=== PATIENT | female | born 1980 | race Caucasian/White ===

== ENCOUNTER 2024-02-26 13:29 | Outpatient (CLI) | payer OTHER, SELFPAY ==
[2024-02-26 14:44] LABS: Basophils Absolute Auto 0.05 K/uL (0.00-0.30); Basophils Percent Auto 0.6 % (0.0-3.0); Eosinophils Absolute Auto 0.15 K/uL (0.00-0.50); Eosinophils Percent Auto 1.8 % (0.0-7.0); Hematocrit 40.1 % (33.0-51.0); Hemoglobin* 13.4 gm/dL (12.0-16.0); Immature Granulocytes Abs Auto 0.04 K/uL (0.00-0.30); Immature Granulocytes Pct Auto 0.5 %; Lymphocytes Absolute Auto 2.32 K/uL (0.90-2.90); Lymphocytes Percent Auto 27.4 % (20-44); Mean Corpuscular HGB Conc 33 gm/dL (32-36); Mean Corpuscular Hemoglobin 29 pg (26-34); Mean Corpuscular Volume 88 fL (80-100); Monocytes Percent Auto 6.6 % (0.0-11.0); Neutrophils Absolute Auto 5.35 K/uL (1.7-7.0); Neutrophils Percent Auto 63.1 % (42.0-72.0); Platelet Count* 359 K/uL (140-440); RDW Coefficient of Variation % 13.1 % (11.5-15.5); Red Blood Count 4.58 m/uL (4.00-5.20); White Blood Count* 8.47 K/uL (4.50-11.00)
[2024-02-26 14:49] LABS: Slide Review Reflex No
[2024-02-26 15:38] LABS: Albumin* 4.4 g/dL (3.3-5.0)
[2024-02-26 15:39] LABS: Chloride* 101 mmol/L (96-114); Potassium* 4.2 mmol/L (3.6-5.1); Sodium* 136 mmol/L (135-149)
[2024-02-26 15:41] LABS: Anion Gap 8 mEq/L (7-15); Aspartate Amino Transferase* 38 U/L (12-35); Bilirubin Total* 0.7 mg/dL (0.1-1.5); Blood Urea Nitrogen* 10 mg/dL (5-24); Carbon Dioxide* 27 mmol/L (20-32); Cholesterol* 199 mg/dL (90-199); Creatinine* 0.6 mg/dL (0.5-1.5); Estimated Glomerular Filt Rate 114 ml/min; Glucose* 83 mg/dL (60-115); Total Protein* 7.3 g/dL (6.0-8.3)
[2024-02-26 15:42] LABS: Alanine Aminotransferase* 39 U/L (4-35); Alkaline Phosphatase* 81 U/L (40-150); Calcium* 9.7 mg/dL (8.4-10.6); HDL Cholesterol* 73 mg/dL (>=50); LDL Cholesterol Calculated 110 mg/dL (<100); Triglycerides* 80 mg/dL (40-149)
[2024-02-26 15:45] LABS: Hemoglobin A1C* 5.2 % (0-5.6)
== END 2024-02-26 13:30 | disposition home or self-care (01) ==
LOC: LAB 13:30
PROVIDERS: Referring Provider Nurse Practitioner; Visit Provider Nurse Practitioner
DX: E66.9 Obesity, unspecified (principal)
CPT/HCPCS: 36415; 80053; 80061; 83036; 84443; 85025